=== PATIENT | female | born 1950 | race American Indian/Alaskan Native ===

== ENCOUNTER 2018-01-17 14:54 | Emergency (ER) | payer MEDICARE ==
[2018-01-17 14:54] VITALS: BMI 35.8
[2018-01-17 15:03] VITALS: RESP 18; TEMP 98.6
--- NOTE | 2018-01-17 15:23 | ED PDOC ---
Arrival/HPI - General Chief Complaint: Back Pain Time Seen by Provider: 01/17/18 15:01 Historian: Patient - History of Present Illness Narrative History of Present Illness (Text): 01/17/18 15:17 67yo female with Past medical history of Diabetes, hypothyroid, and hypertension who present with mid back pain that started 2days ago. States pain started when she bent down to leaf size picker a soap , and she heard a "pop" on the area. Notes she took Tylenol that day with relieve. The pain is sharp/ crampy and worse with any movement. she denies urinary symptoms, fever, chills, ripping/tearing upper back pain, dizziness, focal weakness, urinary/fecal incontinence, chest pain, shortness of breath, any other complaint. Past Medical History - Provider Review Nursing Documentation Reviewed: Yes - Infectious Disease Hx of Infectious Diseases: None - Tetanus Immunization Tetanus Immunization: Unknown - Reproductive Menopause: No - Cardiac Hx Cardiac Disorders: No Hx Pacemaker: No - Pulmonary Hx Asthma: Yes - Neurological Hx Neurological Disorder: No Hx Paralysis: No - HEENT Hx HEENT Disorder: No - Renal Hx Renal Disorder: No - Endocrine/Metabolic Hx Endocrine Disorders: No Hx Diabetes Mellitus Type 2: Yes - Hematological/Oncological Hx Blood Transfusions: No Hx Blood Transfusion Reaction: No - Integumentary Hx Dermatological Disorder: No - Musculoskeletal/Rheumatological Hx Arthritis: Yes Hx Falls: Yes - Gastrointestinal Hx Gastroesophageal Reflux: Yes Hx Gastrointestinal Ulcer: Yes - Genitourinary/Gynecological Hx Genitourinary Disorders: No - Psychiatric Hx Emotional Abuse: No Hx Physical Abuse: No Hx Substance Use: No - Surgical History Other/Comment: LEFT OVARIAN REMOVAL - Anesthesia Hx Anesthesia: No Hx Anesthesia Reactions: No Hx Malignant Hyperthermia: No - Suicidal Assessment Feels Threatened In Home Enviroment: No Family/Social History - Physician Review Nursing Documentation Reviewed: Yes Family/Social History: Unknown Family HX Smoking Status: Never Smoked Hx Alcohol Use: No Hx Substance Use: No Substance used: marjuana Hx Substance Use Treatment: No Allergies/Home Meds Allergies/Adverse Reactions: Allergies meperidine Allergy (Severe, Verified 04/08/16 10:34) SEIZURE Home Medications: Home Meds Medication Instructions Recorded Confirmed Calcium Carbonate/Vitamin D3 1 each PO DAILY 04/08/16 01/17/18 [Calcium 600 + Vit D 400 Caplet] Multivitamin [Multivitamins] 1 each PO DAILY 04/08/16 01/17/18 Levothyroxine [Synthroid] 25 mcg PO DAILY 01/17/18 01/17/18 Simvastatin [Zocor] 20 mg PO DAILY 01/17/18 01/17/18 metFORMIN [glucOPHAGE] 500 mg PO BID 01/17/18 01/17/18 Review of Systems - Physician Review All systems were reviewed & negative as marked: Yes - Review of Systems Constitutional: Normal Eyes: Normal ENT: Normal Respiratory: Normal Cardiovascular: Normal Gastrointestinal: Normal Genitourinary Female: Normal Musculoskeletal: Back Pain Skin: Normal Neurological: Normal Endocrine: Normal Hemo/Lymphatic: Normal Psychiatric: Normal Physical Exam Vital Signs Reviewed: Yes Vital Signs Temp Pulse Resp BP Pulse Ox 01/17/18 17:48 71 18 125/76 99 01/17/18 14:57 98.6 F 77 18 129/83 97 Temperature: Afebrile Blood Pressure: Normal Pulse: Regular Respiratory Rate: Normal Appearance: Positive for: Well-Appearing, Non-Toxic, Comfortable Pain Distress: None Mental Status: Positive for: Alert and Oriented X 3 - Systems Exam Head: Present: Atraumatic, Normocephalic Pupils: Present: PERRL Extroacular Muscles: Present: EOMI Conjunctiva: Present: Normal Mouth: Present: Moist Mucous Membranes Neck: Present: Normal Range of Motion Respiratory/Chest: Present: Clear to Auscultation, Good Air Exchange. No: Respiratory Distress, Accessory Muscle Use Cardiovascular: Present: Regular Rate and Rhythm, Normal S1, S2. No: Murmurs Abdomen: Present: Normal Bowel Sounds. No: Tenderness, Distention, Peritoneal Signs Back: Present: Midline Tenderness (Midline thoracic tenderness). No: CVA Tenderness, Paraspinal Tenderness, Pain with Leg Raise Upper Extremity: Present: Normal Inspection. No: Cyanosis, Edema Lower Extremity: Present: Normal Inspection. No: Edema Neurological: Present: GCS=15, CN II-XII Intact, Speech Normal Skin: Present: Warm, Dry, Normal Color. No: Rashes Psychiatric: Present: Alert, Oriented x 3, Normal Insight, Normal Concentration Medical Decision Making ED Course and Treatment: 01/18/18 00:52 IMPRESSION: No evidence of acute fracture or subluxation. Small disc bulge at L4-L5 and L5-S1 associated with posterior ligament and facet joint hypertrophy. IMPRESSION: No evidence of acute fracture or subluxation. No evidence of significant spinal or neural foraminal narrowing. Moderate degenerative disc and endplate changes more prominent at T7-T9 and T9- T10. PT's pain was controlled in Emergency department with medication. She was ambulatory and had no focal neurological deficit. Result was DW the pt. she was DC home with Tramadol rx and referred to ortho - RAD Interpretation Radiology Orders: 01/17/18 15:15 THORACIC SPINE W/O CONT [CT] Stat 01/17/18 15:16 LUMBAR SPINE W/O CONTRAST [CT] Stat - Medication Orders Current Medication Orders: Discontinued Medications Acetaminophen (Tylenol 325mg Tab) 975 mg PO STAT STA Stop: 01/17/18 15:32 Last Admin: 01/17/18 15:45 Dose: 975 mg MAR Pain/Vitals Document 01/17/18 15:45 MANDIE (Rec: 01/17/18 15:45 MANDIE [id number]) Presence of Pain Presence of Pain Yes Pain Scale Used Pain Scale Used Numeric Location Upper or Lower Lower Pain Location Body Site Back Description Sharp Intensity 9 Scale Used Numeric Cyclobenzaprine HCl (Flexeril) 10 mg PO STAT STA Stop: 01/17/18 15:18 Last Admin: 01/17/18 15:25 Dose: 10 mg Ketorolac Tromethamine (Toradol) 60 mg IM STAT STA Stop: 01/17/18 15:18 Last Admin: 01/17/18 15:29 Dose: Not Given Non-Admin Reason: Patient Refused Disposition/Present on Arrival - Present on Arrival Any Indicators Present on Arrival: No History of DVT/PE: No History of Uncontrolled Diabetes: No Urinary Catheter: No History of Decub. Ulcer: No History Surgical Site Infection Following: None - Disposition Have Diagnosis and Disposition been Completed?: Yes Diagnosis: Thoracic spine pain Disposition: HOME/ ROUTINE Disposition Time: 18:10 Patient Plan: Discharge Condition: STABLE Discharge Instructions (ExitCare): Upper Back Pain Additional Instructions: Follow up with your Doctor/Orthopedist Return to Emergency department for any new or worsening symptoms Prescriptions: traMADol [Ultram] 50 mg PO TID #12 tab Referrals: Pratima Rodriguez MD [Primary Care Provider] - Follow up with primary Oswald Marrufo MD [Staff Provider] - Follow up with primary Forms: [employer] (Cuban)
--- NOTE | 2018-01-17 17:47 | CT ---
PROCEDURE: CT Thoracic Spine without contrast HISTORY: back pain COMPARISON: None. TECHNIQUE: Axial computed tomography images were obtained of the thoracic spine without intravenous contrast. Coronal and sagittal reformatted images were created and reviewed. Radiation dose: Total exam DLP = 743.0 mGy-cm. This CT exam was performed using one or more of the following dose reduction techniques: Automated exposure control, adjustment of the mA and/or kV according to patient size, and/or use of iterative reconstruction technique. FINDINGS: VERTEBRAE: Unremarkable. No fracture. Normal alignment. DISCS/SPINAL CANAL/NEURAL FORAMINA: Within the limits of the CT technique, no disc herniation seen. No central canal or neural foraminal stenosis.. Moderate degenerative disc and endplate changes associated with small anterior and posterior osteophyte formation more prominent at T7-T8 and T9-T10. PARASPINAL SOFT TISSUES: Unremarkable. OTHER FINDINGS: Unremarkable. IMPRESSION: No evidence of acute fracture or subluxation. No evidence of significant spinal or neural foraminal narrowing. Moderate degenerative disc and endplate changes more prominent at T7-T9 and T9-T10.
[2018-01-17 17:48] VITALS: BP 125/76; PULSE 71; O2SAT 99
--- NOTE | 2018-01-17 18:03 | CT ---
PROCEDURE: CT Lumbar Spine without contrast HISTORY: back pain COMPARISON: None. TECHNIQUE: Axial computed tomography images were obtained of the lumbar spine without the use of intravenous contrast. Coronal and sagittal reformatted images were created and reviewed. Radiation dose: Total exam DLP = 986.7 mGy-cm. This CT exam was performed using one or more of the following dose reduction techniques: Automated exposure control, adjustment of the mA and/or kV according to patient size, and/or use of iterative reconstruction technique. FINDINGS: VERTEBRAE: Unremarkable. No fracture. Normal alignment. DISCS/SPINAL CANAL/NEURAL FORAMINA: L1-2: Unremarkable. L2-3: Unremarkable. L3-4: Unremarkable. L4-5: There is a small broad-based disc bulge seen associated with posterior ligament and facet joint hypertrophy which resulting in mild spinal stenosis. L5-S1: There is a small broad-based disc bulge seen associated with posterior ligament and facet joint hypertrophy. No evidence of significant spinal or neural foraminal narrowing PARASPINAL SOFT TISSUES: Unremarkable. OTHER FINDINGS: None. IMPRESSION: No evidence of acute fracture or subluxation. Small disc bulge at L4-L5 and L5-S1 associated with posterior ligament and facet joint hypertrophy.
== END 2018-01-17 18:30 | disposition home or self-care (01) ==
LOC: ED 14:54
DX: M54.6 Pain in thoracic spine (principal); E11.9 Type 2 diabetes mellitus without complications; I10 Essential (primary) hypertension; E03.9 Hypothyroidism, unspecified

== ENCOUNTER 2018-11-25 13:30 | Outpatient (CLI) | payer MEDICARE | END 2018-11-25 13:31 | disposition home or self-care (01) | LOC: RAD 13:30 ==